=== PATIENT | male | born 1950 | race Caucasian/White ===

== ENCOUNTER 2017-10-08 17:36 | Emergency (ER) | payer BC, OTHER ==
[~2017-10-08] VITALS: Ht 175.3 cm; Wt 106.6 kg
[~2017-10-08 17:36] MED LIST: ALLO300T2 PO; ATOR40TA PO; CLON2TAB PO; DULO30CA2 PO; LORA2TAB PO; QUIN40TA PO; TRICOR PO
[2017-10-08] MEDS ORDERED: ASPI81TA31 PO (17:53)
== END 2017-10-08 18:32 | disposition left against medical advice (07) ==
LOC: ER 17:36
DX: Z53.21 Procedure and treatment not carried out due to patient leaving prior to being seen by health care provider (principal)
CPT/HCPCS: A4663

== ENCOUNTER 2019-02-18 11:42 | Emergency (ER) | payer MEDICARE, BC ==
[~2019-02-18] VITALS: Ht 175.3 cm; Wt 108.9 kg
[~2019-02-18 11:42] MED LIST changes: -ALLO300T2 PO; +ASPI81TA31 PO; -CLON2TAB PO
--- NOTE | 2019-02-18 11:57 | NUR ---
Patient discharged to home in stable conditon. Written and verbal after care instructions given. Patient verbalizes understanding of instructions.pt walks i nsteady gait, no sign of distress.
== END 2019-02-18 11:59 | disposition home or self-care (01) ==
LOC: ER 11:42
DX: J06.9 Acute upper respiratory infection, unspecified (principal); I10 Essential (primary) hypertension; F32.9 Major depressive disorder, single episode, unspecified; F41.9 Anxiety disorder, unspecified; Z88.0 Allergy status to penicillin; Z79.82 Long term (current) use of aspirin; Z79.899 Other long term (current) drug therapy
CPT/HCPCS: A4663